=== PATIENT | male | born 1955 | race Caucasian/White ===

== ENCOUNTER 2019-01-30 19:06 | Emergency (ER) | payer OTHER ==
[~2019-01-30] VITALS: Ht 172.7 cm; Wt 108.9 kg
[2019-01-30] MEDS ORDERED: HYDROcodone/APAP 5/325MG 1 TAB TABLET PO ONE (19:30)
[2019-01-30] MEDS ORDERED: LIDOCAINE WITH 8.4% SOD BICARB 3 ML DISP.SYRIN. INJ ONE (19:30)
[2019-01-30] MEDS ORDERED: LIDOCAINE/EPI/TETRACAINE TOPICAL GEL 3 ML. TP ONE (19:30)
[2019-01-30] MEDS ORDERED: DIPHTH,PERTUSS(ACELL),TET TOX 0.5 ML DISP.SYRIN. VAX IM ONE ×2 (19:46→20:00)
--- NOTE | 2019-01-30 21:19 | RAD ---
3 views right wrist dated 01/30/2019. No comparison available. Clinical data indication: Pain after fall. FINDINGS: 3 views right wrist show comminuted intra-articular fracture of the distal radius with volar subluxation of the carpal bones. Overlying soft tissue swelling. Distal ulna is intact. There is subchondral cystic changes of the ulna with blunting of the ulnar styloid and mild degenerative change of them distal radial ulnar joint. There is widening of the scapholunate distance, measuring about 5 to 6 mm. Additional fractures are seen. IMPRESSION: 1. Comminuted intra-articular fracture of the distal radius with volar subluxation of the carpus. 2. Scapholunate dissociation, suggesting tear of the scapholunate ligament. This could be acute or chronic. Electronically signed by: Catrachito May MD (01/30/2019 9:16 PM) [facility]
--- NOTE | 2019-01-30 21:25 | PHYS DOC ---
Past Medical History Past Medical History: No Pertinent History (TEAGAN BREEN APRN) Past Surgical History: Tonsillectomy (TEAGAN BREEN APRN) Alcohol Use: None Drug Use: None (TEAGAN BREEN APRN) Adult General Chief Complaint Chief Complaint: MECHANICAL FALL HPI HPI Patient is a 63 year old male patient who presents to the ED today to be evaluated after falling off a ladder. 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 He states he believes he fell down 3 feet. Patient denies any loss of consciousness. Denies hitting his head on the ground. Denies being on any anticoagulants. He is reporting mild right wrist pain and chin laceration only. He states the pain to the wrist is worse on touching it. He is unable to take the wrist through any range of motion. He is right-handed. (TEAGAN BREEN APRN) Review of Systems Review of Systems Constitutional: Denies fever or chills [] Eyes: Denies change in visual acuity, redness, or eye pain [] HENT: Denies nasal congestion or sore throat [] Respiratory: Denies cough or shortness of breath [] Cardiovascular: No additional information not addressed in HPI [] GI: Denies abdominal pain, nausea, vomiting, bloody stools or diarrhea [] : Denies dysuria or hematuria [] Musculoskeletal: Reports right wrist pain Integument: Reports chin laceration Neurologic: Denies headache, focal weakness or sensory changes [] All other systems were reviewed and found to be within normal limits, except as documented in this note. (TEAGAN BREEN APRN) Current Medications Current Medications Current Medications Medications (Trade) Dose Ordered Sig/Joshua Start Time Stop Time Status Last Admin Dose Admin Acetaminophen/ Hydrocodone Bitart (Lortab 5/325) 2 tab 1X ONCE 01/30/19 19:30 01/30/19 19:31 DC 01/30/19 19:51 2 TAB Diphtheria/ Tetanus/Acell Pertussis (Boostrix) 0.5 ml ONCE ONCE 01/30/19 20:00 01/30/19 20:01 DC 01/30/19 19:59 0.5 ML Etomidate (Amidate) 10 mg 1X ONCE 11/6/19 22:00 01/30/19 22:01 DC 01/30/19 22:17 10 MG Fentanyl Citrate (Fentanyl 2ml Vial) 100 mcg 1X ONCE 01/30/19 22:00 01/30/19 22:01 DC 01/30/19 22:17 100 MCG Lidocaine HCl (Buffered Lidocaine 1%) 3 ml 1X ONCE 01/30/19 19:30 01/30/19 19:31 DC 01/30/19 19:51 3 ML Ondansetron HCl (Zofran) 4 mg 1X ONCE 01/30/19 23:00 01/30/19 23:01 DC 01/30/19 22:56 4 MG Sodium Chloride 1,000 ml @ 1,000 mls/hr 1X ONCE 01/30/19 22:00 01/30/19 22:59 DC 01/30/19 21:49 1,000 MLS/HR Tetracaine/ Epinephrine/ Lidocaine (Let (Tlxy-Jmejxii-Jugzz) Gel) 3 ml 1X ONCE 01/30/19 19:30 01/30/19 19:31 DC 01/30/19 19:51 3 ML (CATRACHITO HODGE DO) Allergies Allergies Allergies Coded Allergies Type Severity Reaction Last Updated Verified No Known Drug Allergies 01/30/19 No (CATRACHITO HODGE DO) Physical Exam Physical Exam Constitutional: Well developed, well nourished, no acute distress, non-toxic appearance. [] HENT: Normocephalic, atraumatic, bilateral external ears normal, oropharynx moist, no oral exudates, nose normal. [] Eyes: PERRLA, EOMI, conjunctiva normal, no discharge. [] Neck: Normal range of motion, no tenderness, supple, no stridor. [] Cardiovascular:Heart rate regular rhythm, no murmur [] Lungs & Thorax: Bilateral breath sounds clear to auscultation [] Abdomen: Bowel sounds normal, soft, no tenderness, no masses, no pulsatile masses. [] Skin: Patient has pain to all over his face and bilateral hands. There is a superficial laceration noted on the left forehead. There is a 3 cm laceration noted on the chin. Laceration is not cutting through. Back: No tenderness, no CVA tenderness. [] Extremities: Right wrist appears obviously deformed. Full range of motion to the right fingers. Completely limited range of motion to the right wrist due to pain and deformity. Adequate radial, medial, or loss of sensation to the right wrist. Neurologic: Alert and oriented X 3, normal motor function, normal sensory function, no focal deficits noted. [] Psychologic: Affect normal, judgement normal, mood normal. [] (TEAGAN BREEN APRN) Physical Exam Constitutional: Well developed, well nourished, non-toxic appearance HENT: Normocephalic, atraumatic, oropharynx moist Eyes: Conjunctiva normal, no discharge Neck: Normal range of motion, no tenderness, supple Cardiovascular: Heart rate normal, regular rhythm Lungs & Thorax: Bilateral breath sounds clear to auscultation, no wheezing Skin: Warm, dry, no erythema, no rash Extremities: Right wrist tenderness with obvious deformity, radial pulse +2, CR < 2 sec Neurologic: Alert and oriented X 3, no focal deficits noted Psychologic: Affect normal, judgement normal (CATRACHITO HODGE DO) Current Patient Data Vital Signs Vital Signs Date Time Temp Pulse Resp B/P (MAP) Pulse Ox O2 Delivery O2 Flow Rate FiO2 01/30/19 22:25 98.2 70 16 145/89 97.2 80 24 60 14 63 13 01/30/19 22:17 94 Room Air (CATRACHITO HODGE DO) EKG EKG [] (TEAGAN BREEN APRN) Radiology/Procedures Radiology/Procedures PROCEDURE: WRIST 3V RIGHT 3 views right wrist dated 01/30/2019. No comparison available. Clinical data indication: Pain after fall. FINDINGS: 3 views right wrist show comminuted intra-articular fracture of the distal radius with volar subluxation of the carpal bones. Overlying soft tissue swelling. Distal ulna is intact. There is subchondral cystic changes of the ulna with blunting of the ulnar styloid and mild degenerative change of them distal radial ulnar joint. There is widening of the scapholunate distance, measuring about 5 to 6 mm. Additional fractures are seen. IMPRESSION: 1. Comminuted intra-articular fracture of the distal radius with volar subluxation of the carpus. 2. Scapholunate dissociation, suggesting tear of the scapholunate ligament. This could be acute or chronic. Electronically signed by: Catrachito May MD (01/30/2019 9:16 PM) [facility] DICTATED and SIGNED BY: CATRACHITO MAY MD DATE: 01/30/192115 []PROCEDURE: WRIST 2V RIGHT Two-view right wrist dated 01/30/2019. Comparison made to study dated same day. CLINICAL INDICATION: Reduction of wrist fracture. FINDINGS: 2 views the right wrist show comminuted intra-articular fracture of the distal radius, unchanged. There is persistent anterior subluxation of the carpal bones relative to the distal radius, similar to prior study. There are some bony fragmentation along the volar surface with diffuse soft tissue swelling. IMPRESSION: No significant interval change in distal radius fracture. Electronically signed by: Catrachito May MD (01/30/2019 10:59 PM) [facility] DICTATED and SIGNED BY: CATRACHITO MAY MD DATE: 01/30/19 3540 Laceration/Wound Repair Wound Location: Chin laceration Wound's Depth, Shape: Horizontal Wound Length (cm): Approximately 4 cm long Wound Explored: clean Irrigated w/ Saline (ccs): 30 Betadine Prep?: Yes Anesthesia: Let solution then 1% buffered lidocaine Volume Anesthetic (ccs): 2 mL of let solution, 1 mL of buffered lidocaine Wound Repaired With: Internal laceration was closed with one interrupted suture using 5.0 dissolvable gut. External laceration was closed with 10 interrupted sutures using 5.0 dissolvable gut. Laceration site was left open to air. (TEAGAN BREEN APRN) Course & Med Decision Making Course & Med Decision Making Pertinent Labs and Imaging studies reviewed. (See chart for details) This is a 63-year-old male patient who presents to the ED today with right wrist injury and chin laceration after falling off a ladder. Patient refused CAT scans he states they're very expensive and he does not want any extra cost. Right wrist x-rays interpreted by radiologist noted for- Comminuted intra- articular fracture of the distal radius with volar subluxation of the carpus. Scapholunate dissociation, suggesting tear of the scapholunate ligament. This could be acute or chronic. Dr. Hodge tried to reduce the wrist with no success. Post reduction xrays interpreted by radiology had not improvement. 2320 Patient accepted at [facility] by Dr. Fuentes [place]. (TEAGAN BREEN APRN) Course & Med Decision Making Patient noted with fracture/dislocation of right radius. Initial XRs with possible carpal bone dislocation. Patient seen and evaluated by myself. Attempted closed reduction with fentanyl and etomidate. Some gross improvement on manipulation. Splint applied. Repeat XR now with confirmation of carpal bone subluxation. Patient requiring hand surgeon evaluation and treatment. Teagan GARCIA arranged transfer to . Patient stable for transfer to for further evaluation and treatment with hand surgery consultation. Discussed findings and plan with patient and family, who acknowledge understanding and agreement. (CATRACHITO HODGE DO) Dragon Disclaimer Dragon Disclaimer This electronic medical record was generated, in whole or in part, using a voice recognition dictation system. (TEAGAN BREEN APRN) Departure Departure Impression: Primary Impression: Fall from ladder Additional Impressions: Distal radius fracture, right Right scapholunate ligament tear Chin laceration Disposition: 05 TRANSFER OTHER Condition: STABLE Referrals: UNKNOWN PCP NAME (PCP) Splinting Splinting : Location: Right wrist Hand-Made Type: orthoglass Splint: ulnar (long arm) Pre-Proc Neuro Vasc Exam: normal Post-Proc Neuro Vasc Exam: normal, unchanged from pre-exam (CATRACHITO HODGE DO) Additional Procedures Progress Fracture/Dislocation reduction under Moderate Sedation: Written consent obtained. Time out performed. Hand hygiene utilized. Patient evaluated by myself. Monitoring applied including continuous pulse oximetry, cardiac activity, and end tidal CO2. Supplemental O2 also applied. IV bolus initiated. Sedation achieved with 100mcg of Fentanyl and 10mg of Etomidate. Physician administered Etomidate. Manipulation of right wrist performed under traction with some interval improvement of deformity. A long arm ulnar gutter splint was applied by myself. Patient tolerated procedure well and without difficulty. Repeat XR obtained with continued subluxation of carpal bones. (CATRACHITO HODGE DO) Attending Signature Attending Signature I have personally interviewed and examined the patient. All charts, labs, and imaging studies were reviewed. I agree with the PA/[employer]'s findings, exam, and plan. (CATRACHITO HODGE DO) Problem Qualifiers Primary Impression: Fall from ladder Encounter type: initial encounter Qualified Codes: W11.XXXA - Fall on and from ladder, initial encounter Additional Impressions: Distal radius fracture, right Encounter type: initial encounter Fracture type: closed Fracture morphology: unspecified fracture morphology Qualified Codes: S52.501A - Unspecified fracture of the lower end of right radius, initial encounter for closed fracture Right scapholunate ligament tear Encounter type: initial encounter Qualified Codes: S63.8X1A - Sprain of other part of right wrist and hand, initial encounter Chin laceration Encounter type: initial encounter Qualified Codes: S01.81XA - Laceration without foreign body of other part of head, initial encounter TEAGAN BREEN APRN Jan 30, 2019 21:25 CATRACHITO HODGE DO Jan 31, 2019 00:04
[2019-01-30] MEDS ORDERED: IV NORMAL SALINE 1000ML BAG 1,000 ML IV ONE (22:00)
[2019-01-30] MEDS ORDERED: ETOMIDATE 20 MG/10 ML VIAL. IV ONE (22:00)
[2019-01-30] MEDS ORDERED: fentaNYL PF VIAL 100 MCG/2 ML VIAL IVP ONE (22:00)
[2019-01-30 22:25] VITALS: BP 145/89
[2019-01-30] MEDS ORDERED: ONDANSETRON PF 4 MG/2 ML VIAL. IVP ONE (23:00)
--- NOTE | 2019-01-30 23:02 | RAD ---
Two-view right wrist dated 01/30/2019. Comparison made to study dated same day. CLINICAL INDICATION: Reduction of wrist fracture. FINDINGS: 2 views the right wrist show comminuted intra-articular fracture of the distal radius, unchanged. There is persistent anterior subluxation of the carpal bones relative to the distal radius, similar to prior study. There are some bony fragmentation along the volar surface with diffuse soft tissue swelling. IMPRESSION: No significant interval change in distal radius fracture. Electronically signed by: Catrachito May MD (01/30/2019 10:59 PM) [facility]
[2019-01-31 00:13] VITALS: BP 127/76
== END 2019-01-31 00:28 | disposition short-term general hospital (02) ==
LOC: ER 19:06
DX: S52.501A Unspecified fracture of the lower end of right radius, initial encounter for closed fracture (principal); S01.81XA Laceration without foreign body of other part of head, initial encounter; S63.8X1A Sprain of other part of right wrist and hand, initial encounter; W11.XXXA Fall on and from ladder, initial encounter; Y93.89 Activity, other specified; Y92.89 Other specified places as the place of occurrence of the external cause; Y99.8 Other external cause status
CPT/HCPCS: 12013; 25605; 73100; 73110; 90471; 90715; 99285; J2405; J3010; J7030; 99152; 99153